=== PATIENT | female | born 1950 | race Caucasian/White ===

== ENCOUNTER → 2017-04-10 | Outpatient (CLI) | payer OTHER ==
[~2017-04-10] MED LIST: AMLODIPINE-BEN1 EAC2 PO; FUROSEMIDE40 MG PO; K-DUR20 MEQ PO; OMEPRAZOLE20 MG PO
== END | disposition home or self-care (01) ==
LOC: CDC 15:33
DX: Z01.810 Encounter for preprocedural cardiovascular examination (principal); G56.02 Carpal tunnel syndrome, left upper limb; M65.322 Trigger finger, left index finger; M65.332 Trigger finger, left middle finger; M65.342 Trigger finger, left ring finger; Z88.5 Allergy status to narcotic agent; Z88.2 Allergy status to sulfonamides
CPT/HCPCS: 93000

== ENCOUNTER → 2018-05-24 | Outpatient (CLI) | payer OTHER | END | disposition home or self-care (01) | LOC: RES 07:47 | DX: J98.4 Other disorders of lung (principal) | CPT/HCPCS: 94070; 94726; 94729 ==